=== PATIENT | male | born 1995 | race Caucasian/White ===

== ENCOUNTER 2019-05-15 05:42 | Emergency (ER) | payer OTHER ==
[~2019-05-15] VITALS: Ht 177.8 cm; Wt 93.0 kg
[2019-05-15 05:42] VITALS: BP 109/66
[2019-05-15 06:01] VITALS: BP 109/66
--- NOTE | 2019-05-15 06:03 | NUR ---
PATIENT BIB [facility] POLICE DEPT. PATIENT EXAMINED BY DR. LEWIS. PATIENT MEDICALLY CLEARED AND RELEASED IN CUSTODY IN STABLE CONDITION. ORIGINAL PRE-BOOK FORM GIVEN TO [facility] OFFICER.
== END 2019-05-15 06:01 ==
LOC: MED 05:42
DX: Z02.89 Encounter for other administrative examinations (principal)
CPT/HCPCS: 99283